=== PATIENT | female | born 1965 | race Caucasian/White ===

== ENCOUNTER 2019-05-21 05:32 | Day surgery (SDC) | payer MEDICARE, MEDICAID ==
[~2019-05-21 05:32] MED LIST: Buffered Lidocaine 1% SYRIN* 1 ML/SYRINGE INTRADERM ONE
[2019-05-21] MEDS ORDERED: HYDROmorphone INJ1* 1 MG/ML SYRINGE IV PRN (05:54)
[2019-05-21] MEDS ORDERED: Scopolamine 1.5 mg* PATCH TRANSDERM PRN (05:54)
[2019-05-21] MEDS ORDERED: Naloxone* 0.4 MG/ML 1 ML VIAL IV PRN (05:54)
[2019-05-21] MEDS ORDERED: PROCHLORPERAZINE INJ 5 MG/ML 2 ML VIAL IV PRN (05:54)
[2019-05-21] MEDS ORDERED: Lactated Ringers 1000 ML Bag* 1,000 ML IV SCH (06:00)
[2019-05-21] MEDS ORDERED: DiMENhydriNATE IV* 50 MG/ML VIAL IV PUSH ONE (06:00)
[2019-05-21] MEDS ORDERED: Ondansetron ODT TAB* 4 MG PO ONE (06:00)
[2019-05-21] MEDS ORDERED: Famotidine IV* 10 MG/ML 2 ML (20 mg) IV ONE (06:00)
[2019-05-21] MEDS ORDERED: DiMENhydriNATE IV* 50 MG/ML VIAL ONE (06:11)
[2019-05-21] MEDS ORDERED: Ondansetron ODT TAB* 4 MG ONE (06:11)
[2019-05-21] MEDS ORDERED: ceFAZolin 2 GM in NS PREMIX(*) 2 GM/100 ML BAG IVPB ONE (06:12)
[2019-05-21] MEDS ORDERED: Famotidine IV* 10 MG/ML 2 ML (20 mg) ONE (06:12)
[2019-05-21] MEDS ORDERED: Propofol* 10 MG/ML 20 ML BTL ONE (07:13)
[2019-05-21] MEDS ORDERED: Lidocaine 2% PF * 5 ML VIAL ONE (07:13)
[2019-05-21] MEDS ORDERED: Midazolam* 1 MG/ML 5 ML VIAL (5 MG) ONE (07:14)
[2019-05-21] MEDS ORDERED: KETAMINE HCL* 50 MG/ML 10 ML VIAL ONE (07:14)
[2019-05-21] MEDS ORDERED: fentaNYL* 50 MCG/ML 2 ML VIAL (100 MCG VIAL) ONE ×2 (07:14→11:01)
[2019-05-21] MEDS ORDERED: Lidocaine 1% INJ* 10 MG/ML 30 ML SDV ONE (07:21)
[2019-05-21] MEDS ORDERED: Bupivacaine 0.25% SDV PF* 10 ML VIAL INJ ONE (07:21)
[2019-05-21] MEDS ORDERED: ceFAZolin VIAL(*) VIAL ONE (08:08)
[2019-05-21] MEDS ORDERED: Phenylephrine 10 MG/ML VIAL* 1 ML VIAL ONE (08:27)
[2019-05-21] MEDS ORDERED: PROCHLORPERAZINE INJ 5 MG/ML 2 ML VIAL ONE ×2 (08:28→12:15)
[2019-05-21] MEDS ORDERED: Ketorolac INJ* 30 MG/ML 1 ML VIAL ONE (08:28)
[2019-05-21] MEDS ORDERED: HYDROmorphone INJ1* 1 MG/ML SYRINGE ONE ×2 (09:50→10:12)
[2019-05-21] MEDS: fentaNYL* 50 MCG/ML 2 ML VIAL (100 MCG VIAL) IV PRN ×3 (11:02→11:24)
[2019-05-21] MEDS ORDERED: Scopolamine 1.5 mg* PATCH ONE (12:14)
[2019-05-21] MEDS ORDERED: Acetaminophen TAB* 325 MG ONE (13:10)
[2019-05-21 15:44] VITALS: BP 116/77
--- NOTE | 2019-05-22 00:03 | OP ---
DATE OF OPERATION: 05/21/19 - [facility] DATE OF : 63 SURGEON: Emre Godfrey MD ADULT BASIC EDUCATION TEACHER: DONTAE Hennessy. An medical receptionist medical assistant was needed for the procedure to aid in position of the arm and retraction. ANESTHESIOLOGIST: Dr. Thomas. ANESTHESIA: General. PRE-OP DIAGNOSIS: Right ulnar impaction syndrome, central triangular fibrocartilage complex degeneration. POST-OP DIAGNOSIS: Right ulnar impaction syndrome, central triangular fibrocartilage complex degeneration. OPERATIVE PROCEDURE: 1. Diagnostic right wrist arthroscopy with TFCC debridement and partial dorsal synovectomy. 2. Right ulnar shortening osteotomy. INDICATIONS: Ms. White is 53 years old. She is right-hand dominant. She has quite a bit of wrist pain which I believe is related to an ulnar impaction syndrome. I talked to her about her treatment options, she had wanted to proceed. She understands the risk of persistent pain despite doing surgery, risk of nonunion at the osteotomy site, risk of stiffness, risk of DRUJ arthritis, and other risks associated with surgery and she wants to proceed. ESTIMATED BLOOD LOSS: 2 mL. COMPLICATIONS: None. FINDINGS: See above and below. DESCRIPTION OF PROCEDURE: Ms. White was seen in the preoperative holding area. The correct site, side, and procedures were identified. We came back to the operating room where the arm was prepped and draped in the usual fashion and a time- out was performed. The arm was exsanguinated with the Esmarch and the tourniquet was inflated to 250 mmHg. The arm was placed in the Acumed traction tower and inline traction was applied. A 3-4 portal was developed using the 11 blade, a mosquito and the arthroscope was introduced there. The radial sided structures all looked good. The lunate facet looked good. There was a very large central TFCC perforation and a lot of dorsal synovitis. The 6R portal was developed and the shaver was introduced into the portal. I went ahead and excised all that dorsal synovitis. I then cleaned up the margins of the TFCC tear. I used the biter as well to perform this. Once I had everything looking nice and clean and debrided and there were no loose edges, I did go ahead and create mid carpal portals of both radial and ulnar in the standard fashion. I went ahead and introduced the camera into the ulnar portal and the probe into the radial portal. I went ahead and examined her for scapholunate instability. It looks like there might be just a trace amount, but there certainly was not a large amount of instability. There was a little bit more lunotriquetral instability and I would rate that more in the Breana 2 to Breana 3 category. There was a little flap of tissue that was just off the most ulnar aspect of the scaphoid. I went ahead and debrided that back with the shaver. Beyond that, there was no further degeneration in the mid carpal portal and so the scope was withdrawn and the arthroscopic equipment passed off. I then flexed the elbow and made a longitudinal incision over the ulnar shaft. Dissection was carried down. Full-thickness flaps were raised off the fascia. The periosteum was incised just directly over the distal third of the ulna. Dissection was carried down. There was a nice flat surface dorsally, I placed the plate there, I clamped it in place. I secured 1 screw in the distal aspect of the oblong hole and 3 screws on the other side of the plate. This was the [employer] ulnar shortening osteotomy system. I then placed the 2 pins in the top of the longitudinal guide. I then clamped in my first 3 mm cutting block and made a cut there. I then put a cutting block beyond and made another cut. The wafer of bone was removed. I had used irrigation during the osteotomy to try prevent thermal necrosis. I then placed into place the compression clamp and the osteotomy came together nice and flush. The oblong screw hole was re- tightened. I then drilled and tamped for the lag screw. I selected an 18 mm lag screw and placed this, and as I did the final tightening, I loosened back up the oblong screw so that we get maximum compression, then re-tightened the oblong screw. I placed a couple of more cortical screws just distal to the oblong screw. At this point, everything was looking good. You could hardly see the osteotomy. Fluoroscopic imaging showed excellent alignment. There was some good shortening of the wrist. The elbow joint was nice and congruent. There was full elbow flexion, extension, pronation, and supination. I went ahead and closed the fascia and periosteum over the plate, taking care not to sew either the tendon, and taking care to always preserve the ulnar sensory nerve. The wound was irrigated out. The subcutaneous tissue was reapproximated with 3-0 Vicryl and the skin was closed with 3-0 Monocryl and Steri-Strips. 0.25% Marcaine was infiltrated all about the operative sites. The portal sites were all closed with Steri-Strips. The wounds were dressed and she was placed in a sugar tong splint with the forearm in neutral rotation. She was taken to the recovery room in stable condition. [id number]/[facility] #: [id number] EMILY
[2019-05-24] MEDS ORDERED: Scopolamine PATCH Remove* 1 NOTE MISC PATCH OFF ONE (05:56)
== END 2019-05-21 15:28 | disposition home or self-care (01) ==
LOC: OR 05:32
PROVIDERS: ATTEND Orthopaedic Surgery Hand Surgery
DX: M24.831 Other specific joint derangements of right wrist, not elsewhere classified (principal); Z87.891 Personal history of nicotine dependence; I10 Essential (primary) hypertension; M19.90 Unspecified osteoarthritis, unspecified site; E78.5 Hyperlipidemia, unspecified; K21.9 Gastro-esophageal reflux disease without esophagitis; F41.8 Other specified anxiety disorders; E66.01 Morbid (severe) obesity due to excess calories
CPT/HCPCS: 76000; A9270-GY; C1713; C1776; J0690; J0780; J1170; J1240; J1885; J2250; J2704; J3010; J3490